=== PATIENT | male | born 1980 | race African-American/Black ===

== ENCOUNTER 2016-11-16 09:10 | Emergency (ER) | payer SELFPAY ==
[~2016-11-16] VITALS: Ht 185.4 cm; Wt 100.0 kg
[~2016-11-16 09:10] MED LIST: AMOXICILLIN500 MG OR; FLEXERIL PO; MEDDOSEPAK OR; NAPROSYN500 MG OR; NAPROSYN500 MG PO; NO MEDS; PROAIR HFA IN; ULTRAM50 M1 PO; ULTRAM50 MG OR; ZITHROMAX250 MG PO; [UNRECOGNIZED DRUG - REMARK]
[2016-11-16] MEDS ORDERED: LORTAB 5-325 MG1 TAB PO (09:58)
[2016-11-16] MEDS ORDERED: PREDNISONE50 MG PO (09:58)
[2016-11-16 10:15] VITALS: BP 123/62
== END 2016-11-16 10:15 | disposition home or self-care (01) | DRG 74 ==
LOC: ED 09:10
DX: G57.12 Meralgia paresthetica, left lower limb (principal)

== ENCOUNTER 2017-01-01 07:48 | Emergency (ER) | payer SELFPAY ==
[~2017-01-01] VITALS: Ht 185.4 cm; Wt 102.7 kg
[~2017-01-01 07:48] MED LIST changes: +LORTAB 5-325 MG1 TAB PO; +PREDNISONE50 MG PO
[2017-01-01] MEDS ORDERED: FLEXERIL PO (09:06)
[2017-01-01] MEDS ORDERED: ULTRAM50 M1 PO (09:06)
[2017-01-01 09:07] VITALS: BP 126/75
== END 2017-01-01 09:14 | disposition home or self-care (01) | DRG 563 ==
LOC: ED 07:48
DX: S39.012A Strain of muscle, fascia and tendon of lower back, initial encounter (principal); M51.9 Unspecified thoracic, thoracolumbar and lumbosacral intervertebral disc disorder; F17.200 Nicotine dependence, unspecified, uncomplicated; X58.XXXA Exposure to other specified factors, initial encounter

== ENCOUNTER 2017-01-04 13:11 | Emergency (ER) | payer SELFPAY ==
[~2017-01-04] VITALS: Ht 185.4 cm; Wt 102.0 kg
[2017-01-04] MEDS ORDERED: IBUPROFEN600 MG PO (15:06)
[2017-01-04 15:15] VITALS: BP 134/75
== END 2017-01-04 15:53 | disposition home or self-care (01) | DRG 552 ==
LOC: ED 13:11
DX: M54.5 Low back pain (principal); M62.830 Muscle spasm of back; F17.210 Nicotine dependence, cigarettes, uncomplicated